=== PATIENT | male | born 1945 | race Caucasian/White ===

== ENCOUNTER 2016-04-02 14:49 | Inpatient (IN) | payer MEDICARE ==
[~2016-04-02 14:49] MED LIST: ALDACTONE50 MG PO; AMLODIPINE BESY10 MG PO; AMLODIPINE10 MG PO; ATIVAN 0.50.5 MG/TAB PO; ATIVAN 2MG/ML2 MG/ML IV; ATIVAN1 MG PO; ATORVASTATIN CA10 MG PO; CHILDREN'S ASPI81 M1 PO; DEXAMETHASONE4 MG PO; ED BACLOFEN10 MG PO; FAMILY PHARMAC0.4 MG PO; GLUCOPHAGE500 MG/TAB PO; HYDRO PAR25 MG PO; HYDRODIURIL25 MG PO; K-DUR 10 MEQ T10 MEQ PO; KLOR-CON 1010 MEQ PO; LASIX20 MG PO; LOPID600 MG PO; LOPRESSOR 225 MG/TAB PO; LORTAB 5/500 501 TAB PO; MAG PO; METFORMIN500 MG PO; MULTI VITAMINS1 TAB PO; NITROSTAT0.4 MG/TAB SL; NORCO 325 MG-51 TA1 PO; NORCO 325 MG-51 TAB PO; OMNICEF 300MG300 MG PO; PLAVIX 75MG TAB75 MG PO; PRAVACHOL 40MG40 MG PO; PRAVACHOL10 MG PO; PRINIVIL20 MG PO; PROPRANOLOL10 MG PO; SERTRALINE HYDR25 MG PO; ST. JOSEPH81 M2 PO; THE MEDICINE SH PO; VITAMIN B-625 M1 PO; VITAMIN B1100 MG PO; VITAMIN B625 MG PO; ZESTRIL 10MG10 MG PO; [UNRECOGNIZED DRUG - REMARK] PO
[2016-04-02 16:47] VITALS: BP 139/77
--- NOTE | 2016-04-02 17:12 | NUR ---
IN BED. ANSWERS QUESTIONS APPROPRIATELY. CALL LIGHT WITHIN REACH.
[2016-04-02 18:19] VITALS: BP 118/68
[2016-04-02 19:21] VITALS: BP 118/68
--- NOTE | 2016-04-02 19:50 | NUR ---
Assessment complete. Pt alert and oriented at this time. Sling to left arm in place. Pt aware he can only remove sling for shower. He is not to move arm from shoulder area. Pt rating pain 4/10. Requesting [place] with HS meds. Will give. Skin tears noted to left hand and rt wrist. Bed alarm on and call light within reach.
[2016-04-02 23:02] VITALS: BP 149/80
--- NOTE | 2016-04-03 01:09 | NUR ---
Report given to JC Angel.
[2016-04-03 03:06] VITALS: BP 144/69
[2016-04-03 06:26] VITALS: BP 137/70
--- NOTE | 2016-04-03 07:00 | NUR ---
REPORT FROM YOLANDA GREENE
--- NOTE | 2016-04-03 07:20 | NUR ---
PT REPORTS FAIR NIGHT STILL COMPLAINS OF PAIN IN L SHOULDER PT OFFERED ICE BUT REFUSED WOULD RATHER JUST WAIT UNTIL ITS TIME FOR PAIN MEDICATION. PT UP IN CHAIR. SHOULDER SLING ON IN L ARM. PT FOLLOWING RESTRICTIONS AT THIS TIME. UPDATED ON PLAN OF CARE. DENIES NEEDS AT THIS TIME
--- NOTE | 2016-04-03 09:40 | NUR ---
PT GIVEN PAIN MED FOR PAIN IN SHOULDER
--- NOTE | 2016-04-03 13:40 | NUR ---
PT UP WALKING IN HALLS WITH PHYSICAL THERAPY
--- NOTE | 2016-04-03 13:49 | NUR ---
PT RATES PAIN IN SHOULDER AT 8/10 PAIN MEDICATION GIVEN. PT DENIES NEEDS AT THIS TIME
--- NOTE | 2016-04-03 16:14 | NUR ---
This nurse visits w/ pt and his "friends", Carissa Deena and Rellany Johnson who have arrived in his room. Pt assures this nurse that these are the people who will be involved in his discharge plans, as they will take him home. Carissa states that she has had Thursday go in and clean, and she will be sure he has clean linens on his bed. In the past there have been known restraining order/orders amongst these people, so this nurse verifies w/ [place] [employer] that there are currently no restraining orders - Elaine Ayers w/ [employer] states there are currently no restraining orders involved w/ the pt or his visitors, Carissa and Rell. Pt and friends state he will need help when he goes home and question about caregiver services. Pt states that he currently does not have RAFAEL assistance, but is agreeable to completing a RAFAEL qpplication - which is given to him. Pt is also agreeable to HH services upon discharge (he would like Interim PRESS SERVICE READER) and he is agreeable to being referred to [facility] for a CARE Assessment for additional services in the home. Referral is made to [facility] and a brief history of the pt is given to [facility] rep, Sabina, w/ the request that it be considered that this pt may need a court appointed guardian to assist him w/ his finances and health care decisions, as patient's friends are also known alcoholics. [facility] Care Dean Of Instruction, Shaila, states she will be out on 04-09-15, to do Care Assessment and assist pt w/ RAFAEL status.
--- NOTE | 2016-04-03 18:10 | NUR ---
REPORT TO SANA GREENE
[2016-04-03 18:33] VITALS: BP 138/68
--- NOTE | 2016-04-03 18:45 | NUR ---
Report received from Clarita Maria RN
--- NOTE | 2016-04-03 19:15 | NUR ---
Pt resting in bed, a/o x 3. At 1900 ambulated to bathroom with gait belt and one assist. C/o's of left shoulder pain. Rates 7 out of 10. Pt able to open and close left hand with out difficulty. Able to wiggle finges and move wrist side to side without difficulty. See Shift accessment.
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
[2016-04-03 21:35] VITALS: BP 138/72
--- NOTE | 2016-04-03 21:55 | NUR ---
Pt c/o's of pain, rates 7 out of 10. Given 2 norco PO.
--- NOTE | 2016-04-03 22:55 | NUR ---
Resting in bed with eyes closed, respirations even and none labored.
--- NOTE | 2016-04-04 01:01 | NUR ---
Reva Ferguson RANGE RIDER reported pt's respirations were 4 per minute. I went into pt's room, pt opened eyes when spoken too. Denied SOB or need for pain medication. Sa02 96% on room air.
--- NOTE | 2016-04-04 01:55 | NUR ---
Resting with eyes closed even, none labored respirations. Respirations 16, Pt awoke when checking pulse Ox. Radial pulse 44, Sa02 96% on room air. Denies pain, or SOB.
--- NOTE | 2016-04-04 02:14 | NUR ---
Awake and a/o x 3, ambulated to bathroom with one stand by assist. Gait steady with ambulation. Gait belt on with ambulation. Denied need for pain medication. Sling on left arm. Pt able to open and close left hand without difficulty. Able to wiggle finger of left hand without difficulty. Moves wrist side to side without difficulty. Pupils equal and reactive to light. Size 2mm. equal stock feeder strength in right and left hand. Denies pain in left hand or arm when gripping. Equal strength in upper and lower extremeties bilaterally. Radial pulse 45 lying down. Sa02 96% on room air. Respirations 18 and even, none labored.
[2016-04-04 05:49] VITALS: BP 135/61
--- NOTE | 2016-04-04 07:00 | NUR ---
Has been resting in bed, eyes closed even respiration. Opens eyes when spoken too. Answers questions appropriately. A/0 x 3. Report given to Zoya Madrigal. Pt has used incentive spirometer when awake. Able to reach 2500 to 3000ml. Left arm continues to be in sling.
--- NOTE | 2016-04-04 07:20 | NUR ---
REPORT RECEIVED FROM JC HOOD
--- NOTE | 2016-04-04 08:00 | NUR ---
PATIENT'S SHIFT ASSESSMENT COMPLETE. PATIENT ALERT AND ORIENTED X4. REPORTS HAVING PAIN IN LEFT SHOULDER RATED 6/10. REQUESTED PRN PAIN MEDICATION. PATIENT'S LEFT ARM IN SLING. NEURO ASSESSMENT WITHIN NORMAL LIMITS. CALL LIGHT WITHIN REACH. BED ALARM ON.
--- NOTE | 2016-04-04 08:45 | NUR ---
PATIENTS RADIAL PULSE 52. BERNARDO MENJIVAR NOTIFIED. PATIENT'S SCHEDULED METOPROLOL HELD. ORDERS RECEIVED TO DC METOPROLOL.
[2016-04-04 18:36] VITALS: BP 141/68
--- NOTE | 2016-04-04 18:51 | NUR ---
REPORT GIVEN TO JC POND
--- NOTE | 2016-04-04 19:30 | NUR ---
Report recieved from Zoya Rider. Assessment complete. Pt alert and oriented at this time. Rt arm is in sling. Pt is aware he is not to move rt arm from shoulder area and needs to leave splint on at all times unless he is showering. Pt has +2 radial pulses hilario and good cap refill. Pt rating pain 4/10. Would like pain meds with his HS meds. Pt denies any other needs at this time. Call light is within reach and bed alarm is on.
--- NOTE | 2016-04-04 23:35 | NUR ---
Pt up to restroom. Pt states his left upper arm is hurting him a lot. Rated pain 8/10. Ultram 50mg po given. Will cont to monitor.
[2016-04-05 05:29] VITALS: BP 131/72
--- NOTE | 2016-04-05 06:39 | NUR ---
Report given to JC Kenny.
[2016-04-05 18:24] VITALS: BP 132/63
--- NOTE | 2016-04-05 19:05 | NUR ---
Report given by Zoya Madrigal RN.
--- NOTE | 2016-04-05 19:10 | NUR ---
See pt shift accessment. Pt a/o x 3. Denies need for pain medication at this time. Denies nausea. Left upper and lower arm in sling immobilizer. Able to open and close left hand without difficulty. Wiggle fingers without difficutly. Moves left wrist from side to side without difficulty. Capillary refill less than 2 seconds. Radial pulse strong. Skin warm pink and dry. Denies numbness or tingling in left hand or fingers.
--- NOTE | 2016-04-05 19:10 | NUR ---
REPORT GIVEN TO JC HOOD
--- NOTE | 2016-04-05 20:38 | NUR ---
Reported to patient's nurse, Jose GREENE, that patient wants a pain pill.
--- NOTE | 2016-04-05 21:50 | NUR ---
C/o of pain, given [place] 2 PO. Rated pain 7 out of 10.
--- NOTE | 2016-04-05 22:50 | NUR ---
Resting in bed, awake and a/o x 3. States norco did not help with pain. Rates pain 8 out of 10.
--- NOTE | 2016-04-05 22:56 | NUR ---
Given ultram 2 PO. Pt continues to be resting in bed awake and a/o. Sling immobilizer in place.
--- NOTE | 2016-04-06 00:05 | NUR ---
Pt resting in bed awake and a/o x 3. Watching tv. States pain is beter. Rates 6 out of 10.
--- NOTE | 2016-04-06 01:25 | NUR ---
Nitro drip titrated to 9ml/hr, due to continuing hypertension.
--- NOTE | 2016-04-06 05:40 | NUR ---
Pt c/o of pain, rated 8 out of 10. Pt given two norco PO. Offered pt snack with pain medication, pt declined.
[2016-04-06 06:34] VITALS: BP 143/62
--- NOTE | 2016-04-06 07:07 | NUR ---
Resting in bed. Q hourly checks done. Currently awake and a/o x 3. Denies needs or concerns. States norco helped with pain. Rates 5 out of 10.
--- NOTE | 2016-04-06 07:30 | NUR ---
Report given to Alma Delia Padilla RN
--- NOTE | 2016-04-06 09:00 | NUR ---
Pt lying in bed crooked w/ left shoulder lower than right shoulder and c/o Left arm pain to ANIMAL CONTROL LICENSING WORKER. Sling and immobilizer intact to left arm/shoulder. Sling adjusted and pt encouraged to sit up straight. Machine Shop Apprentice brusing noted to left scapular area. Moves left fingers well - good cap refill. Pt reports this pain is bad - can't we go ahead w/ surgery. Pt reminded of ortho appt next thursday in [place]. Next prn pain [place] pain med due at 0930 and will be given then. Pt encouraged to sit up in recliner at bedside - gait steady w/ CGA by nurse. call light in reach/chair alarm on.
--- NOTE | 2016-04-06 11:32 | NUR ---
Pt reports pain is less 4/10 now. Ambulates in lyn w/ RECAPPER w/ SBA about 150 ft. - steady gait. Tolerated well. Returns to recliner for lunch.
--- NOTE | 2016-04-06 11:32 | NUR ---
Prune juice given to facilitate bowels. Ambulation encouraged.
--- NOTE | 2016-04-06 14:30 | NUR ---
Pt up to BR - steady gait. Reports he had a large stool and flatus. Results not seen by staff.
--- NOTE | 2016-04-06 15:04 | NUR ---
Pt resting in bed w/ eyes closed and resp even and unlabored. Not disturbed at this time.
--- NOTE | 2016-04-06 17:26 | NUR ---
Pt found w/ sling off. States"I had to do something to make it feel better. Didn't want to take more pain med and get addicted". Sling reapplied along w/ immobilizer. Pt amb to recliner (around bed) w/ steady gait. States is more comfortable now. Pt aware of tramadol that can be given between [place] doses. Call light in reach. Refuses dinner as "not hungry". Sprite given per request.
--- NOTE | 2016-04-06 18:30 | NUR ---
Pain meds given for 6/10 pain in left shoulder and elbow area. Pt remains up in recliner at bedside. Call light in reach.
[2016-04-06 18:32] VITALS: BP 134/73
--- NOTE | 2016-04-06 19:30 | NUR ---
Report received from Pricila GREENE. Patient rests in bed watching TV, bed alarm on. A/O x4. Rates pain to right shoulder area 09/13. Had analgesic [address] hr ago[address] Sling in place. Adjusted earlier by EXECUTIVE COACH, states "it keeps slipping and I rather not wear it". Advised patient that it needs to stay on at all times except with showering. Assesment completed. CMS intact to LUE. Denies wants or needs at this time.
--- NOTE | 2016-04-06 19:41 | NUR ---
report to KESHAV Brooks.
--- NOTE | 2016-04-06 22:43 | NUR ---
Requests and given [place] for pain 09/13. Had Ultram 2 tabs earlier with no relief. Watching TV. Denies further wants or needs at this time.
--- NOTE | 2016-04-07 03:05 | NUR ---
[place] 2 tabs taken PO for pain 09/13. Sling adjusted to L arm. Voids in urinal. Rests off and on through the night. Bed alarm on. Call light in reach.
--- NOTE | 2016-04-07 05:46 | NUR ---
COMPUTER FORWARDING SYSTEM MARKUP CLERK enters room, and noted that patient had taken his arm out of his sling. He stated to her that "it feels better when it is out, can't I just leave it out". DWAYNE checks with this nurse who advises that the Orthopedic Dr's orders were to be in sling at all times except for when showering, this has been told to the patient already tonight, COMPUTER FORWARDING SYSTEM MARKUP CLERK again tells this to patient and sling applied again at this time.
[2016-04-07 06:04] VITALS: BP 163/70
--- NOTE | 2016-04-07 07:20 | NUR ---
Report to Ana María GREENE
--- NOTE | 2016-04-07 10:12 | NUR ---
Dariusz Oneil, PT at pt bedside per this RN request to help adjust sling to L arm for increased comfort. Dariusz instructs that pt would be best served by using sling with elbow support. Also instructs to use pillows to support arm while sitting down and to attempt to relax shoulder muscles. States that may let pt stand periodically if pain gets overwhelming and take arm from sling and let static hang for short time.
--- NOTE | 2016-04-07 17:28 | NUR ---
Pt sitting back relaxed in recliner. Reports pain 5/10 to L arm and denies need for pain medication at this time.
[2016-04-07 18:14] VITALS: BP 140/77
--- NOTE | 2016-04-07 19:18 | NUR ---
Report received from Ana María Dorman RN
--- NOTE | 2016-04-07 19:20 | NUR ---
Resting in recliner awake and a/o x 3. Used incentive spirometer, able to reach 2000mls. Sling on left forearm. Pillow under left arm. Able to open and close hand without difficulty. Able to wiggle fingers on left hand without difficulty. Able to move wrist from side to side.
--- NOTE | 2016-04-07 19:25 | NUR ---
See shift accessment.
--- NOTE | 2016-04-07 20:25 | NUR ---
Awake and a/o x 3. C/o's of pain in left shoulder. Sling on left lower arm. Pillow continues to be under left forearm. Rates pain at 6 1/2 to 7 out of ten. Given two [place] PO
--- NOTE | 2016-04-07 21:35 | NUR ---
2134 Awake and a/o x 3, continues to complain of pain in left shoulder. Rated 6 out of 10. Given Ultram 50mg 2 PO. Offered snack, pt declined. Used incentive spirometer, able to reach 2000mls.
--- NOTE | 2016-04-07 23:00 | NUR ---
Resting in bed, eyes closed even respirations. No facial grimacing noted
--- NOTE | 2016-04-08 02:05 | NUR ---
At 0200 Pt awake watching TV. C/o of pain in left shoulder. Rated pain 6 out of 10. Given two [place] PO.
--- NOTE | 2016-04-08 02:09 | NUR ---
Left shoulder continues to be in sling, with pillow under left lower arm.
--- NOTE | 2016-04-08 03:00 | NUR ---
Resting in bed with eyes closed, even and none labored respirations. No facial grimacing noted.
--- NOTE | 2016-04-08 05:00 | NUR ---
Resting in bed with eyes closed. Even, none labored respirations. No facial grimacing noted. Pt has repositioned self in bed. Continues to have sling on left lower arm with pillow under left arm.
[2016-04-08 05:43] VITALS: BP 164/84
--- NOTE | 2016-04-08 07:20 | NUR ---
Report given to Ana María Dorman RN
--- NOTE | 2016-04-08 08:55 | NUR ---
Pt reports increased pain to L arm with movement or anticipated movement. Adjusted pillows to support L arm. Sling in place. Pt reports continued constipation, started on miralax this AM. Pt reports having hallucinations at times r/t pain Rx. States that in past he had taken Lortab without issues.
--- NOTE | 2016-04-08 17:20 | NUR ---
Discussed w/ pt that [facility] Care Personal Clothing Laundry Aide would be in to do CARE Assessment in the am to help him w/ needed caregiver assistance in the home when he is discharged. Also discussed w/ pt that therapists will continue to work w/ him in [facility] care and will reassess him again next Thursday. Pt states that he is going to go home tonight. Pt is advised that his gait is not stable w/ ambulation and that therapy would like to see him be more stable so that when he goes home it will be safely, and that we want to try to get caregiver services established prior to his discharge. Pt continues to state that he is going home tonight. This nurse advises him if he leaves tonight, he will be leaving against medical advice. Pt replies he will have someone come and get him. Nursing staff and attending provider, BERNARDO Diaz, are notified. Nursing is asked to please notify any friend that comes to get him tonight, that he is leaving against medical advice. Mara Mendoza RN comes to this nurse to report that pt's friend Carissa Shaffer has just called nurse's station and stated that he is being discharged. Carissa states that she wants to confirm this as she is not coming to get him if he is not being discharged. Nursing advises her that he is not being discharged tonight.
[2016-04-08 18:09] VITALS: BP 167/95
--- NOTE | 2016-04-08 19:20 | NUR ---
Report received from Ana María Dorman RN
--- NOTE | 2016-04-08 19:25 | NUR ---
Resting in bed awake and a/o x 3. Left shoulder continues to be in a sling. Pillow under left lower arm. See shift accessment. C/o's of left shoulder pain rates 6 out of 10. Pt states an exceptable pain level is 3 out 10.
--- NOTE | 2016-04-08 20:29 | NUR ---
Continues to c/o of pain, rates 6 out 10. Given [place] two PO per pt request. Pt a/o x 3, watching TV. Offered snack, pt declined. Bed alarm set. Left lower arm in sling. Pt able to do hand exercise by opening and closing left hand, wiggling fingers on left hand and moving wrist from side to side.
--- NOTE | 2016-04-08 21:30 | NUR ---
Resting in bed, with eyes closed on and off. Pt stated the thought a person named Aj had been in his room. Pt informed he has been sleeping and has had no visitors. Pt able to give correct Month, date, year and place.
--- NOTE | 2016-04-08 23:23 | NUR ---
Pt awake and a/o x 3. C/o's of left shoulder pain. Left lower arm continues to be in sling with pillow under left arm. Rates pain 6 out of 10. Pt given ultram 50mg 2 PO per pt request.
--- NOTE | 2016-04-09 00:43 | NUR ---
Resting in bed, eyes closed even and none labored respirations. No facial grimacing noted. Pt noted to be talking in his sleep. Q hourly checks done. Bed alarm on. SCD's on lower legs.
--- NOTE | 2016-04-09 04:30 | NUR ---
Resting in bed, eyes closed. Respirations even and none labored. Sling on left lower arm. Pt has repositioned self. Bed alarms on. Q hourly checks done.
[2016-04-09 05:53] VITALS: BP 174/90
--- NOTE | 2016-04-09 06:07 | NUR ---
At 0501 pt awake, c/o of left shoulder pain. Would be come tearfull and then became irritated and stating he wanted to leave the hospital. Pt rated pain a 5 out of 10. I encouraged pt to go for a walk and pt agreed. At 0515 pt ambulated in hallway from his room to the [facility] the [facility]. At 0550 taken back to room in wheel chair. Pt stated he felt better. No longer becoming tearfull or irritated. Pt smiling and talking. Ambulated to bathroom and used urinal. Voided 450mls of dark yellow urine. Pt denied having any needs or concerns.
--- NOTE | 2016-04-09 07:32 | NUR ---
Report given to Aroldo Julian RN
--- NOTE | 2016-04-09 10:27 | NUR ---
SITTING IN CHAIR. OCCUPATIONAL THERAPY IN ROOM TO ASSIST WITH SHOWER. PATIENT QUESTIONING WHEN HE WILL GO HOME.
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
--- NOTE | 2016-04-09 17:11 | NUR ---
Report received from Aroldo Werner RN.
[2016-04-09 18:23] VITALS: BP 150/75
--- NOTE | 2016-04-09 18:28 | NUR ---
This RN in with patient to provide standby assist after going to the bathroom, and to monitor HS cares being performed by him. Patient got back into bed independently, with only mild set-up assistance. Patient was tucked in, and his bed alarm set. Bed rails up x2. Patient's HOB elevated to a 30 degree angle. Patient's cell phone rings, and he opens the cell phone, closes it and tosses it down. Patient then picks up his call light, and starts talking into it. As the patient's TV was on, the TV sounds were coming out of it. Patient states into the call light "Hey! Turn that down!" Patient reoriented at this time.
--- NOTE | 2016-04-09 20:40 | NUR ---
Pt's bed alarm goes off at this time, I ran to the room and patients call light had falled onto the floor, handed patient his call light and asked if he had been trying to get out of bed, patient was lying in bed still at this time watching television, at this time patient states "No, I didn't need anything, I was going up into the lights and I almost couldn't stop." This nurse tried to engage in conversation about him "going into the lights" and he just continued saying he was being pulled up into the ceilings into the light, patient requests to be left alone, bed alarm on, call light within reach, encouraged to rest and ask staff for any help needed
--- NOTE | 2016-04-09 22:30 | NUR ---
This RN walked to the nurse's station, where this patient was observed to be agitated, as evidenced by his body language, the contortion of his facial features and his tone of voice towards staff. Patient was observed to be attempting to dial on his phone, and fumbling. JC Angel and DWAYNE Muhammad were standing near patient, but within a safe distance, due to patient's agitation. This RN stood near and assessed the situation. RN Jeanne reported that patient had become agitated in his room, but that he would not talk to her before walking out to the nurse's station. Patient then began talking to Dispatch on his phone, as evidenced by a voice stating "911, what's your emergency?" Patient began to escalate, and started yelling at the dispatcher "They're keeping me hostage here! There are some weird things going on in my room, and I don't like it!" Patient continued to yell at the dispatcher "I'm at [facility]. I'm a patient, and I need help!" At this time, while patient was on the phone with dispatch, ARIELLA Mccray called for police presence. Patient continued to escalate, as he began yelling at the dispatcher "It's not funny, quit laughing!" Patient continued to escalate and yell louder, repeating to the dispatcher who and where he was. ARIELLA Mcrcay gave verbal orders to administer 0.5 mg of IM Ativan if needed. This RN went to the med room to draw up the medication, and upon returning to the nurse's station, patient was gone. Other staff reported that DWAYNE Muhammad had accompanied patient to his room. At this time, two police officers arrive, and accompany this RN to patient's room. Patient is observed to be laying in his bed, and DWAYNE Muhammad is providing therapeutic communication. The two police officers attempt to provide de-escalation techniques and active listening. Patient continues to be agitated, but not at the level he was while standing at the nurse's station. The two police convince patient that he is better off staying at the hospital until he gets better. Patient accepts a PO ativan from this RN at this time. Patient states that he won't cause "any more trouble" to the police. Bed rails are up x2. Bed alarm is armed. Patient is provided more therapeutic communication from DWAYNE Muhammad and this RN. Approximately 10 minutes later, patient asked for his evening medications. This RN offered patient tylenol, as he had been administered his evening medications at 2030. Patient accepted. At 0015, patient requested his evening medications again. This RN asked patient what he wanted medications for, and asked "Are you in pain?" Patient stated "Yes, alot." Patient administered PRN Kaycee, 2 tabs at 0018. Patient has repositioned himself independently throughout the night, often knocking items off of his bedside table, "accidentally" pushing his call light repeatedly and setting off his bed alarm. Patient continues to be provided reorientation, therapeutic communication, active listening and verbal de-escalation techniques from all staff on duty this night. Patient requests the lights be turned off, and at 0100, he is observed to be sleeping.
--- NOTE | 2016-04-10 03:09 | NUR ---
Patient is observed to be sleeping quietly in bed. Patient changes his position in bed independently throughout the night. Patient does not appear to be in any obvious distress at this time. Bed alarm remains armed. Bed rails up x2. Close monitoring and hourly rounds continue.
--- NOTE | 2016-04-10 05:37 | NUR ---
DWAYNE Muhammad notified this RN that patient had urinated on the floor in his room, right next to the bed. Sabina also notified this RN that patient also had some blood on his sheets. This RN went to patient's bedside, and looked for the origin of the blood. Patient was noted to have dried blood around his right wrist, and an old scab appeared to have been picked at. It was not actively bleeding, and it appeared as though it was already scabbing over again. Patient does not appear to be in any obvious distress at this time. Bed alarm remains armed. Bed rails up x2. Close monitoring and hourly rounds continue.
[2016-04-10 05:58] VITALS: BP 178/87
--- NOTE | 2016-04-10 07:21 | NUR ---
Report given to Matilda Werner RN.
--- NOTE | 2016-04-10 08:30 | NUR ---
Pt sound asleep, not willing to wake up at this time, short assessment completed, will assess more thoroughly shortly per patients request for me to leave the room and leave him alone
--- NOTE | 2016-04-10 09:00 | NUR ---
Pt agrees to wake up to take his pills at this time as long as I have pain medication, PRN pain meds provided, reports a 7/10 pain in left shoulder, sling is on appropriately, patient in a foul mood, when asked if he knows where he is right now his response was "Yes, I am in the [facility] asylum," patient continues to answer the correct day, month and year as well as president, patient takes meds whole then proceeds to get out of bed and walk with SBA independently to the bathroom to urinate, patient then returns to bed and DWAYNE Smith presents to him the lunch menu, patient refuses to eat breakfast, and hands the lunch menu back and states he will not each lunch either, requests to allow him to remain sleeping and leave him alone, will continue to encouage patient to get out of bed throughout shift
--- NOTE | 2016-04-10 10:00 | NUR ---
This nurse is approached by Attending Provider, BERNARDO Diaz, and notified that pt is having inappropriate behaviors w/ staff using the F word and last night called 911 wanting out of [facility], telling police that we were holding him hostage. Deisy states, "I just tried to go in and tell him that we will not tolerated these behaviors and he cursed at me. I am ready to hand him his AMA papers, if you want to go in and see if you can convince him to stay, I am fine with that". This nurse approaches pt who is lying quietly in bed, and asks him what happened last night. Pt states there are weird things going on around in the hospital. Pt is asked if the staff have treated him wrong and he states no, it's not the people who work here. Pt is asked if he is scared and he states yes. At home I don't have these problems. Pt goes on to state he thinks it may be the narcotics he is taking for pain. He is told that Deisy has said she would be glad to try to change his medications to something different for pain. Pt is agreeable. Pt is also offered to seek care at another hospital that could help him more w/ his psych issues. He asks where and is offered [facility] in [place] or [facility] in [facility] in [place]. Pt refuses, and states he will just stay here. Deisy has in the meantime brought him in his AMA paperwork. Pt tells this nurse they are trying to kick me out. He is reminded that he asked for this, and is offered time to think about it if he wishes. He is told that if he gets scared about anything to just call staff and ask to talk. He is offered talking to a SW from [employer] [facility] and he is agreeable, Deisy is notifed and she will order a [facility], which may benefit pt after discharge as well. David w/ [employer] is notified and will come and speak to pt this afternoon. David states that pt should not be suffering from DT's if he has been off of alcohol since the . David states, that it is interesting that he is having hallucinations now, sometimes people drink to get away from their hallucinations. David states that [facility] consult might be in order. BERNARDO Diaz is notified of this. David states that he will discuss pt w/ Deisy if she is available after his visit w/ pt this afternoon. Pt's medications are changed to a Lidoderm Patch QHS daily; Toradol 10mg PO TID. His Ultram, Ativan, and [place] medications are DC'd. He continues on Zoloft 25mg daily. Pt records are sent to David stallworth/ [facility] for his review.
--- NOTE | 2016-04-10 13:27 | NUR ---
Pt calm and collected, resting in bed, refuses to take any more narcotics and states he feels they are "messing with his mind" and that he has "never felt that way", will continue to let patient rest, started Toradol and a Lidocaine patch this shift and have DC'd all narcotics per patient request
--- NOTE | 2016-04-10 14:00 | NUR ---
David Guaman, therapist from [facility] is here to see pt. Pt is sleeping so soundly and snoring so loudly, he does not awaken to his name, and David decides to try to come back later as he understands pt had a bad night yesterday. 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 Deisy states that pt is on Thiamine, since he has been here, and new orders are given for Vit B1 level; CMP to check liver function; and U/A w/ drug abuse screen, as David also asks if there is a possibility that pt's friends who were visiting yesterday could have brought him anything. David also recommends that if pt should try to leave AMA that perhaps [facility] should be consulted for potential involuntary IP psyche admission, especially if he is continuing to have behaviors and c/o hallucinations.
--- NOTE | 2016-04-10 14:00 | NUR ---
Pt very lethargic throughout shift, difficult to arouse, when woken up he returns to sleep shortly, pulse ox applied to finger due to apneic spells, Hx of sleep apnea, refuses CPAP, O2 drops into 82%-88% but HR drops significantly to 45-50 range, will continue to monitor patients O2 and HR while sleeping
--- NOTE | 2016-04-10 14:00 | NUR ---
Alyssa with [facility] by to visit with patient at this time, patient sound asleep and Alyssa was unable to arouse enough to engage in deep conversation, Alyssa states he can return later on hopefully to try and talk to him, states that if patient wants to leave AMA this may be something [facility] needs to be involved in rather than [facility], will continue to monitor patients behavior
--- NOTE | 2016-04-10 14:29 | NUR ---
Pt sound asleep snoring, unable to easily arouse, will administer 1400 dose of Toradol when patient wakes up and can safely take medication, will no longer provide PRN Narcotics per patient request due to recent hallucinations and mood changes
--- NOTE | 2016-04-10 16:28 | NUR ---
BECKIE Ruby, in patients room discussing previous behaviors, patient very apologetic and states "it must've been the meds", pt states hes embarrassed about these behaviors and would never treat women disrespectfully or use foul language if he was in his right frame of mind, repeats multiple times "It must've been the meds," and states he has recieved very good care by the nurses here during his stay, agrees with Aleksandr that he is not going to use these behaviors anymore and apologizes again, will continue to monitor for further behaviors
--- NOTE | 2016-04-10 17:35 | NUR ---
Urine drug screen back, positive for oxy, no oxy administered this stay, provider notified
[2016-04-10 18:04] VITALS: BP 132/62
--- NOTE | 2016-04-10 19:15 | NUR ---
Repprt received from Matilda GREENE. Patient rests with eyes closed. Respirartions even and non-labored. Sling in place to LUE. Bed alarm on. Call light in reach.
--- NOTE | 2016-04-10 21:15 | NUR ---
Remains with eyes closed. Respirations even and non-labored. No signs of distress. Will allow to rest a little while longer then attempt to arouse for medications and assessment.
--- NOTE | 2016-04-10 22:12 | NUR ---
Awakens easily with verbal stimuli. Cordial and cooperative. A/O x4. Sling in place to LUE. CMS intact. Neuro checks WNL. Rates pain to LUE 4/10. Takes scheduled medications whole 2 at a time without difficulty. Reports he is glad he is not feeling like he was and is apologetic for how he acted. Assessment completed. Offered and refused HS snack. Bed alarm on. Call light in reach.
--- NOTE | 2016-04-11 00:05 | NUR ---
Rests with eyes closed. No signs of pain or distress. Bed alarm on. Call light in reach.
--- NOTE | 2016-04-11 03:03 | NUR ---
Rings call light for assist to BR. Remains oriented and cooperative with staff. Sling in place to LUE. Denies need for analgesic. Assisted back to bed. Bed alarm on. Call light in reach.
--- NOTE | 2016-04-11 04:22 | NUR ---
Rests with eyes closed. No signs of pain or distress. Bed alarm on, call light in reach.
--- NOTE | 2016-04-11 05:21 | NUR ---
Up to BR with assist. Pain level 3/10. Tylenol 650 MG given for pain prevention until scheduled Toradol and Lidoderm patch at 0900. Remains coopertive and cordial. Assisted back to bed. Sling in place. Bed alarm on. Call light in reach.
[2016-04-11 06:06] VITALS: BP 180/91
--- NOTE | 2016-04-11 07:34 | NUR ---
Tee Ryan PA-C at bedside. Patient is alert and oriented. Pleasant. Apologetic for behavior on previous days. States "I'm good now." States that he would like to stay and continue to work with PT/OT/ST. Left arm in sling. Denies pain while sitting still. Rates pain 4/10 to left shoulder with movement. Patient denies needs or questions at this time. Fall precautions in place.
--- NOTE | 2016-04-11 07:35 | NUR ---
Report to Irene GREENE
--- NOTE | 2016-04-11 13:19 | NUR ---
Called BERNARDO Everett office and explained that pt has no transportation for appointment on 04-14-16, except for [facility] and the next dates they go to [place] are 04-23 and 04-30. Pt's appt for 04-14-16 is cancelled and changed to 04-23-16 @ 10:15, Glynn Causey does not want Xrays prior to appt, they will do them there. 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
[2016-04-11 18:18] VITALS: BP 148/72
--- NOTE | 2016-04-11 21:01 | NUR ---
Report received from Irene GREENE. Patient rests supine in bed. A/O x4. Sling in place to LUE. CMS intact. Neuros intact. Rates pain 07/14. Scheduled analgesic taken. Assessment completed. Remains cooperative with staff. Bed alarm on. Call light in reach. HS snack offered and refuses. Denies wants or needs.
--- NOTE | 2016-04-12 00:10 | NUR ---
Up to BR with 1 assist to void. Assisted back to bed. Tylenol given per request for analgesic. Pain level 07/14. Sling adjusted for comfort. Bed alarm on. Call light in reach. SCD's on BLE. Denies further wants or needs.
[2016-04-12 06:16] VITALS: BP 163/89
--- NOTE | 2016-04-12 06:32 | NUR ---
Rested well the rest of the shift. No change in status. Called for assist to BR PRN.
--- NOTE | 2016-04-12 07:19 | NUR ---
Report to Saud GREENE
--- NOTE | 2016-04-12 07:20 | NUR ---
REPORT RECEIVED FROM GIBRAN ONEILL LPN
--- NOTE | 2016-04-12 07:50 | NUR ---
PATIENT UP TO RECLINER. SHIFT ASSESSMENT COMPLETE. PATIENT ALERT AND ORIENTED X4. REPORTS HAVING PAIN IN LEFT SHOULDER RATED 3/10. DESCRIBES PAIN SHARP. PATIENT HAS SLING IN PLACE TO LEFT ARM. PATIENT'S NEURO ASSESSMENT WITHIN NORMAL LIMITS. DENIES ANY SHORTNESS OF BREATH OR DIFFICULTIES BREATHING. PATIENT'S CALL LIGHT WITHIN REACH. CHAIR ALARM ON.
[2016-04-12 18:23] VITALS: BP 155/67
--- NOTE | 2016-04-12 19:20 | NUR ---
report given to katalina garcíarn
[2016-04-13 06:02] VITALS: BP 160/97
--- NOTE | 2016-04-13 07:20 | NUR ---
report received from katalina garcíarn
--- NOTE | 2016-04-13 14:00 | NUR ---
this nurse in with patient to have BIPA form signed. when speaking with patient about being discharged thursday patient reports that he feels comfortable with it and that he thinks he will do okay. states "is there a certain time this is all gonna get done so that i can try and arrange a ride, i just live a couple blocks away?" patient told this nurse that he was ready to go home but that he was going to miss it here. that he enjoyed being at the hospital and that he was going to miss us and thanked us for the care. this nurse asked patient if he needed help with getting new cards and replacing everything in his wallet, denies needing any assistance.
[2016-04-13 18:13] VITALS: BP 151/70
--- NOTE | 2016-04-13 19:20 | NUR ---
report given to katalina garcíarn
[2016-04-14 06:56] VITALS: BP 144/77
--- NOTE | 2016-04-14 07:10 | NUR ---
REPORT RECEIVED FROM Yuliya GILLESPIERN
--- NOTE | 2016-04-14 07:20 | NUR ---
REPORT RECEIVED FROM Yuliya GILLESPIERN
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
--- NOTE | 2016-04-14 11:46 | NUR ---
F/U appointments are made w/ Dr Lucero @ [facility] on 05-01-16 @ 1:45, excelsior picker at 1:00, and Dr Humphrey on 04-18-16 @ 10:30, excelsior picker at 10:15. [facility] has been scheduled to pick pt up for all appointments as noted. Pt will be notified of scheduling, by Nursing prior to discharge, as will [facility]AT[facility] WR[facility].
[2016-04-14 18:53] VITALS: BP 163/77
--- NOTE | 2016-04-14 19:30 | NUR ---
REPORT GIVEN TO Jaun CASTANEDA RN
--- NOTE | 2016-04-14 20:10 | NUR ---
Shift assessment documented and completed at this time. Pt resting in bed watching TV. Neuro assessment WDL. Denies dyspnea. Pain 5/10 to LUE d/t recent movement. Pt denies need for PRN pain medication at this time. Sling in place on LUE. HS meds given whole without issue. Pt is eager to get home tomorrow. Bed locked, low, call light within reach, alarm armed. No further needs at this time.
[2016-04-15 05:51] VITALS: BP 162/74
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
--- NOTE | 2016-04-15 09:15 | NUR ---
Pt sitting up in chair. Reports pain to L shoulder "low" stating "it only hurts when I try to move it." Pt reports being ready to go home and ride will come to pick him up whenever he calls. Sling to L arm in place, will place lidoderm patch to L shoulder per pt request once shower is complete. Pt is aware of need for UA specimen. Cup placed in BR. Pt takes all AM meds without difficulty and asks if he will be sent home with new Rx. Inform pt that those will be sent to pharmacy for him to p/u upon d/c.
--- NOTE | 2016-04-15 10:00 | NUR ---
Pt shower complete. Applied lidoderm patch to L shoulder. Reminded pt to take patch off in 12 hours. Pt acknowledges understanding and finishes sentence for me.
[2016-04-15] MEDS ORDERED: ASPIRIN E.C. 8181 MG PO (12:11)
[2016-04-15] MEDS ORDERED: MELOXICAM PO (12:11)
[2016-04-15] MEDS ORDERED: OPTIMUM VITAMI100 MG PO (12:12)
[2016-04-15] MEDS ORDERED: VITAMIN B-625 M1 PO (12:13)
[2016-04-15] MEDS ORDERED: LIDODERM PATCH TP (12:14)
--- NOTE | 2016-04-15 12:59 | NUR ---
Discussed d/c instrutions with pt. Pt reports understanding. POM returned to pt from pharmacy with repeated instructions to not take lopressor. Placed tape over lid and wrote "do not take." Pt will bring copy of med list to appt with Dr. Humphrey on Thursday to make him aware and discuss changes. Instruct pt that HH will f/u and help with home and med set-up. Meds returned to pt are as follows: Zoloft, Multivitamin, Norvasc, H2O2 mouth wash, Lipitor, Vitamin B-6 x 2, Metoprolol. Pt ambulates, with L arm in sling, from facility, escorted by friends Rell and Carissa Johnson. Pt is also made aware of f/u appts and informed of p/u arrangements, all of which are highlighted on d/c ppw.
== END 2016-04-15 12:59 | disposition home health service (06) | DRG 560 ==
LOC: MED/SURG 14:49
PROVIDERS: ADMIT Physician Assistant
DX: S42.202D Unspecified fracture of upper end of left humerus, subsequent encounter for fracture with routine healing (principal); I42.9 Cardiomyopathy, unspecified; R26.9 Unspecified abnormalities of gait and mobility; I10 Essential (primary) hypertension; F10.20 Alcohol dependence, uncomplicated; R35.0 Frequency of micturition; R35.1 Nocturia; F91.8 Other conduct disorders; I48.91 Unspecified atrial fibrillation; E11.9 Type 2 diabetes mellitus without complications; I25.10 Atherosclerotic heart disease of native coronary artery without angina pectoris; T40.605A Adverse effect of unspecified narcotics, initial encounter; W19.XXXD Unspecified fall, subsequent encounter; I25.2 Old myocardial infarction; Z91.81 History of falling; Z95.5 Presence of coronary angioplasty implant and graft
CPT/HCPCS: A4565; A9270-GY

== ENCOUNTER 2016-05-26 17:49 | Emergency (ER) | payer MEDICARE ==
[~2016-05-26 17:49] MED LIST changes: +ASPIRIN E.C. 8181 MG PO; +LIDODERM PATCH TP; +MELOXICAM PO; +OPTIMUM VITAMI100 MG PO
[2016-05-27 08:10] VITALS: BP 176/96
[2016-05-28] MEDS ORDERED: ATIVAN1 M1 PO (16:36)
== END 2016-05-27 08:13 | disposition home or self-care (01) ==
LOC: ED 17:49
DX: S09.90XA Unspecified injury of head, initial encounter (principal); R56.9 Unspecified convulsions; H11.31 Conjunctival hemorrhage, right eye; F10.10 Alcohol abuse, uncomplicated; Z79.82 Long term (current) use of aspirin
CPT/HCPCS: J3360

== ENCOUNTER 2016-05-28 14:55 | Emergency (ER) | payer MEDICARE ==
[2016-05-28] MEDS ORDERED: ATIVAN1 M1 PO (16:36)
== END 2016-05-28 16:54 | disposition home or self-care (01) ==
LOC: ED 14:55
DX: F10.20 Alcohol dependence, uncomplicated (principal); F10.239 Alcohol dependence with withdrawal, unspecified

== ENCOUNTER 2016-06-09 17:40 | Emergency (ER) | payer MEDICARE ==
[~2016-06-09 17:40] MED LIST changes: +ATIVAN1 M1 PO
[2016-06-09 20:45] VITALS: BP 149/64
== END 2016-06-09 20:45 | disposition short-term general hospital (02) ==
LOC: ED 17:40
DX: S09.90XA Unspecified injury of head, initial encounter (principal); F10.229 Alcohol dependence with intoxication, unspecified; W19.XXXA Unspecified fall, initial encounter; Y92.018 Other place in single-family (private) house as the place of occurrence of the external cause
CPT/HCPCS: A4354; J2405; J3411; J3475; J7030

== ENCOUNTER 2016-07-09 16:32 | Observation (INO) | payer MEDICARE ==
[2016-07-09] MEDS ORDERED: FOLIC ACID1 MG PO (17:24)
[2016-07-09] MEDS ORDERED: ASPIR-TRIN325 M1 PO (17:25)
[2016-07-09] MEDS ORDERED: LEVOTHYROXIN0.025 MG PO (17:25)
[2016-07-09] MEDS ORDERED: HYZAAR 50-12.51 EACH PO (17:26)
[2016-07-09] MEDS ORDERED: CASODEX 50MG TA50 MG PO (17:31)
[2016-07-09 22:26] VITALS: BP 109/57
[2016-07-09 23:10] VITALS: BP 109/57
[2016-07-10 03:09] VITALS: BP 115/61
[2016-07-10 06:38] VITALS: BP 119/68
== END 2016-07-10 10:50 | disposition home or self-care (01) ==
LOC: ED 16:32 → MED/SURG 22:01
PROVIDERS: ADMIT Nurse Practitioner Primary Care
DX: F10.129 Alcohol abuse with intoxication, unspecified (principal); R42 Dizziness and giddiness; Y90.8 Blood alcohol level of 240 mg/100 ml or more; R29.6 Repeated falls; Z72.89 Other problems related to lifestyle; I49.9 Cardiac arrhythmia, unspecified; I11.9 Hypertensive heart disease without heart failure; Z87.820 Personal history of traumatic brain injury; Z79.82 Long term (current) use of aspirin; S50.812A Abrasion of left forearm, initial encounter; S50.811A Abrasion of right forearm, initial encounter
CPT/HCPCS: G0378; J2060; J3411; J7030

== ENCOUNTER 2016-07-11 19:39 | Emergency (ER) | payer MEDICARE ==
[~2016-07-11 19:39] MED LIST changes: +ASPIR-TRIN325 M1 PO; +CASODEX 50MG TA50 MG PO; +FOLIC ACID1 MG PO; +HYZAAR 50-12.51 EACH PO; +LEVOTHYROXIN0.025 MG PO
[2016-07-12 11:02] VITALS: BP 128/74
== END 2016-07-12 11:19 | disposition home or self-care (01) ==
LOC: ED 19:39
DX: F10.229 Alcohol dependence with intoxication, unspecified (principal); Y90.8 Blood alcohol level of 240 mg/100 ml or more; R45.851 Suicidal ideations

== ENCOUNTER → 2016-08-28 | Outpatient (CLI) | payer MEDICARE | LOC: LAB 13:48 | DX: C61 Malignant neoplasm of prostate (principal) ==

== ENCOUNTER 2016-12-06 13:42 | Observation (INO) | payer MEDICARE ==
[~2016-12-06] VITALS: Ht 175.3 cm; Wt 97.1 kg
[2016-12-07 13:43] VITALS: BP 182/90
[2016-12-07 14:53] VITALS: BP 182/90
[2016-12-07 18:26] VITALS: BP 178/96
[2016-12-07 22:22] VITALS: BP 168/90
[2016-12-08 03:28] VITALS: BP 179/90
[2016-12-08 06:35] VITALS: BP 168/86
[2016-12-08 11:33] VITALS: BP 156/82
== END 2016-12-08 12:44 | disposition home or self-care (01) ==
LOC: ED 13:42 → MED/SURG 12-07 13:28
PROVIDERS: ADMIT Family Medicine
DX: G40.509 Epileptic seizures related to external causes, not intractable, without status epilepticus (principal); Y90.8 Blood alcohol level of 240 mg/100 ml or more; F10.239 Alcohol dependence with withdrawal, unspecified; T51.0X1A Toxic effect of ethanol, accidental (unintentional), initial encounter; T50.906A Underdosing of unspecified drugs, medicaments and biological substances, initial encounter; F10.229 Alcohol dependence with intoxication, unspecified; I25.10 Atherosclerotic heart disease of native coronary artery without angina pectoris; I10 Essential (primary) hypertension; Z91.128 Patient's intentional underdosing of medication regimen for other reason; Z95.5 Presence of coronary angioplasty implant and graft; Z91.81 History of falling; K29.70 Gastritis, unspecified, without bleeding; K25.9 Gastric ulcer, unspecified as acute or chronic, without hemorrhage or perforation; Z79.82 Long term (current) use of aspirin; R32 Unspecified urinary incontinence
CPT/HCPCS: G0378; J2060; J3411; J3475; J7030

== ENCOUNTER 2017-02-14 10:53 | Inpatient (IN) | payer MEDICARE ==
[~2017-02-14] VITALS: Ht 180.3 cm; Wt 98.0 kg
[2017-02-14] VITALS (8 sets, daily range): BP systolic 143–163; BP diastolic 71–102
[2017-02-15 03:00] VITALS: BP 181/99
[2017-02-15 06:08] VITALS: BP 158/94
[2017-02-15 07:49] LABS: EOS # 0.3 (0.04-0.40); EOS % 4.3 % (0.0-4.0); HEMATOCRIT 37.4 % (42.0-52.0); HEMOGLOBIN 12.4 g/dL (13.5-18.0); LYMPH# 2.2 (1.50-4.00); MEAN CELL VOLUME 90 fl (78-100); MEAN CORPUSCULAR HEMOGLOBIN 30 pg (27-31); MEAN CORPUSCULAR HGB CONC 33 g/dL (33-37); MEAN PLATELET VOLUME 9.8 fl (7.4-10.4); MONO # 0.7 (0.20-0.80); NEU # 3.2 (1.40-6.50); PLATELET COUNT 148 K/mm3 (130-400); RED BLOOD COUNT 4.18 M/mm3 (4.20-5.60); RED CELL DISTRIBUTION WIDTH 15.3 % (11.5-14.5); WHITE BLOOD COUNT 6.5 K/mm3 (4.8-10.8)
[2017-02-15 07:50] LABS: URINE APPEARANCE CLEAR; URINE BILIRUBIN NEGATIVE (NEGATIVE); URINE BLOOD NEGATIVE (NEGATIVE); URINE COLOR YELLOW; URINE GLUCOSE NEGATIVE (NEGATIVE); URINE KETONE NEGATIVE (NEGATIVE); URINE LEUKOCYTE ESTERASE NEGATIVE (NEGATIVE); URINE MUCUS NOT PRESENT (NOT PRESENT); URINE NITRATE NEGATIVE (NEGATIVE); URINE PROTEIN(semi-quant) NEGATIVE (NEGATIVE); URINE UROBILINOGEN NORMAL (NORMAL)
[2017-02-15 08:10] LABS: BUN/CREATININE RATIO 9.6 (6.0-26.0); CALCIUM 8.6 mg/dL (8.4-10.2); POTASSIUM 3.1 mmol/L (3.6-5.0)
[2017-02-15 11:11] VITALS: BP 134/81
[2017-02-15] MEDS ORDERED: SEPTRA DS 8001 TAB PO (14:31)
== END 2017-02-15 15:26 | disposition home or self-care (01) | DRG 897 ==
LOC: MED/SURG 10:53
PROVIDERS: ADMIT Family Medicine
DX: F10.231 Alcohol dependence with withdrawal delirium (principal); N39.0 Urinary tract infection, site not specified; M10.9 Gout, unspecified; I10 Essential (primary) hypertension

== ENCOUNTER 2017-03-11 05:33 | Emergency (ER) | payer MEDICARE ==
[~2017-03-11] VITALS: Ht 180.3 cm; Wt 97.1 kg
[~2017-03-11 05:33] MED LIST changes: +SEPTRA DS 8001 TAB PO
[2017-03-11 06:38] LABS: BASO # 0.1 (0.02-0.10); EOS # 0.1 (0.04-0.40); HEMATOCRIT 39.2 % (42.0-52.0); HEMOGLOBIN 12.9 g/dL (13.5-18.0); LYMPH# 1.6 (1.50-4.00); MEAN CELL VOLUME 90 fl (78-100); MEAN CORPUSCULAR HEMOGLOBIN 30 pg (27-31); MEAN CORPUSCULAR HGB CONC 33 g/dL (33-37); MEAN PLATELET VOLUME 9.5 fl (7.4-10.4); MONO # 0.8 (0.20-0.80); NEU # 5.6 (1.40-6.50); PLATELET COUNT 180 K/mm3 (130-400); RED BLOOD COUNT 4.35 M/mm3 (4.20-5.60); RED CELL DISTRIBUTION WIDTH 14.8 % (11.5-14.5); WHITE BLOOD COUNT 8.2 K/mm3 (4.8-10.8)
[2017-03-11 07:06] LABS: CKMB ISOENZYME 1.4 ng/mL (0.6-3.5); TROPONIN-I < 0.03 ng/mL (0.00-0.06)
[2017-03-11 07:08] LABS: ALBUMIN 3.9 g/dL (3.5-5.0); ALT/SGPT 22 U/L (21-72); AST-SGOT 35 U/L (17-59); BUN/CREATININE RATIO 10.8 (6.0-26.0); CALCIUM 8.7 mg/dL (8.4-10.2); CARBON DIOXIDE 29 mmol/L (22-30); GLUCOSE 115 mg/dL (75-110); POTASSIUM 3.4 mmol/L (3.6-5.0); SODIUM 138 mmol/L (137-145); TOTAL BILIRUBIN 1.2 mg/dL (0.2-1.3)
[2017-03-11 07:11] LABS: ALCOHOL IN-HOUSE < 10 mg/dL
[2017-03-11 09:31] LABS: URINE APPEARANCE HAZY; URINE BILIRUBIN NEGATIVE (NEGATIVE); URINE BLOOD NEGATIVE (NEGATIVE); URINE COLOR YELLOW; URINE GLUCOSE NEGATIVE (NEGATIVE); URINE KETONE NEGATIVE (NEGATIVE); URINE LEUKOCYTE ESTERASE NEGATIVE (NEGATIVE); URINE MUCUS PRESENT (NOT PRESENT); URINE NITRATE NEGATIVE (NEGATIVE); URINE PROTEIN(semi-quant) 1+ mg/dL (NEGATIVE); URINE UROBILINOGEN NORMAL (NORMAL)
[2017-03-11 13:56] VITALS: BP 121/58
== END 2017-03-11 14:27 ==
LOC: ED 05:33
PROVIDERS: Nurse Practitioner Family
DX: T68.XXXA Hypothermia, initial encounter (principal); R62.7 Adult failure to thrive; Z91.81 History of falling; F10.20 Alcohol dependence, uncomplicated; Y90.0 Blood alcohol level of less than 20 mg/100 ml; I48.91 Unspecified atrial fibrillation; I25.10 Atherosclerotic heart disease of native coronary artery without angina pectoris; E11.9 Type 2 diabetes mellitus without complications; I10 Essential (primary) hypertension; R41.0 Disorientation, unspecified; R44.3 Hallucinations, unspecified; S00.11XA Contusion of right eyelid and periocular area, initial encounter; S41.112A Laceration without foreign body of left upper arm, initial encounter; X58.XXXA Exposure to other specified factors, initial encounter; K21.9 Gastro-esophageal reflux disease without esophagitis; Z79.82 Long term (current) use of aspirin; X31.XXXA Exposure to excessive natural cold, initial encounter

== ENCOUNTER 2017-08-12 13:33 | Emergency (ER) | payer MEDICARE ==
[~2017-08-12] VITALS: Wt 96.5 kg
[2017-08-12 14:23] LABS: HEMATOCRIT 36.9 % (42.0-52.0); HEMOGLOBIN 12.6 g/dL (13.5-18.0); MEAN CELL VOLUME 88 fl (78-100); MEAN CORPUSCULAR HEMOGLOBIN 30 pg (27-31); MEAN CORPUSCULAR HGB CONC 34 g/dL (33-37); MEAN PLATELET VOLUME 8.5 fl (7.4-10.4); PLATELET COUNT 189 K/mm3 (130-400); RED BLOOD COUNT 4.19 M/mm3 (4.20-5.60); RED CELL DISTRIBUTION WIDTH 14.6 % (11.5-14.5); WHITE BLOOD COUNT 6.9 K/mm3 (4.8-10.8)
[2017-08-12 14:33] LABS: ALT/SGPT 27 U/L (21-72); AST-SGOT 47 U/L (17-59); BUN/CREATININE RATIO 19.4 (6.0-26.0); CALCIUM 8.4 mg/dL (8.4-10.2); CARBON DIOXIDE 22 mmol/L (22-30); GLUCOSE 142 mg/dL (75-110); POTASSIUM 3.9 mmol/L (3.6-5.0); SODIUM 132 mmol/L (137-145); TOTAL BILIRUBIN 1.8 mg/dL (0.2-1.3); TOTAL PROTEIN 7.4 g/dL (6.3-8.2)
[2017-08-12 14:36] LABS: LYMPHOCYTE 15 % (20-51); METAMYELOCYTE 0 % (0-0); MONOCYTE 11 % (3-10); NEUTROPHILS 70 % (42-75)
[2017-08-12 14:41] LABS: URINE APPEARANCE CLEAR; URINE BILIRUBIN NEGATIVE (NEGATIVE); URINE BLOOD NEGATIVE (NEGATIVE); URINE COLOR YELLOW; URINE GLUCOSE NEGATIVE (NEGATIVE); URINE KETONE 2+ (NEGATIVE); URINE LEUKOCYTE ESTERASE NEGATIVE (NEGATIVE); URINE MUCUS PRESENT (NOT PRESENT); URINE NITRATE NEGATIVE (NEGATIVE); URINE PROTEIN(semi-quant) TRACE mg/dL (NEGATIVE); URINE UROBILINOGEN NORMAL (NORMAL)
[2017-08-12 14:52] LABS: ALCOHOL IN-HOUSE < 10 mg/dL
[2017-08-12] MEDS ORDERED: ATIVAN1 M1 PO (15:27)
--- NOTE | 2017-08-12 15:52 | NUR ---
Pt states he would like to return to [facility] as he is not making it at home on his own. His PCP has directed EMS to pick him up and bring him to hospital to evaluate him and facilitate him going to LTCF. Pt requests [facility] which has no availability. Pt then states he will go to whoever will take him. He is notified that [facility] has a skype psychiatrist who helps pt's w/ alcohol problems and that they also take their residents to AA meetings. He is agreeable to going to [facility]. [facility] is contacted and is agreeable to taking this pt who needs LTCF loc due to not being able to care for himself at home and is no longer safe living independently in his own home, and who is agreeable to [facility] Pl[facility], as his his PCP, Dr Humphrey. Orders are obtained and faxed to facility. Facility is on its way to transfer pt per facility van.
[2017-08-12 16:13] VITALS: BP 152/71
== END 2017-08-12 16:12 ==
LOC: ED 13:33
PROVIDERS: Physician Assistant
DX: R62.7 Adult failure to thrive (principal); F10.20 Alcohol dependence, uncomplicated; Y90.0 Blood alcohol level of less than 20 mg/100 ml; I10 Essential (primary) hypertension; I25.10 Atherosclerotic heart disease of native coronary artery without angina pectoris; I48.91 Unspecified atrial fibrillation; Z91.81 History of falling; Z79.82 Long term (current) use of aspirin